=== PATIENT | male | born 1985 | race Caucasian/White ===

== ENCOUNTER 2017-04-09 14:07 | Emergency (ER) | payer OTHER ==
[2017-04-09 14:49] VITALS: BP 127/85
--- NOTE | 2017-04-09 15:20 | RAD ---
INDICATION: Trauma COMPARISON: None TECHNIQUE: AP, lateral, and oblique views were obtained. FINDINGS: There is a mildly angulated fractures of the fifth metacarpal head. There are no other fractures. The articular relationships are maintained. There is soft tissue swelling about the fracture site. IMPRESSION: FIFTH METACARPAL FRACTURE.
--- NOTE | 2017-04-09 18:39 | UC ---
Crow Minaya Alfonso, scribed for Archie Daly MD on 04/09/17 at 1559 . Hand/Wrist HPI - HPI Summary HPI Summary: This patient is a 31 year old M presenting to [facility] with a chief complaint of right hand injury since yesterday at noon. 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 Pt rates the pain 4/10 in severity. Symptoms aggravated and alleviated by nothing. Not alleviated by ibuprofen. Pt reports ecchymosis and swelling of the right hand. Pt denies lacerations. Pt medications reviewed this visit. - History Of Current Complaint Chief Complaint: UCUpperExtremity Stated Complaint: HAND INJURY Time Seen by Provider: 04/09/17 15:29 Hx Obtained From: Patient Onset/Duration: Sudden Onset, Lasting Days - 1, Still Present Pain Intensity: 4 Pain Scale Used: 0-10 Numeric Aggravating Factor(s): Other Alleviating: Other Associated Signs And Symptoms: Positive: Swelling, Bruising, Other - Negative lacerations Related History: Other: - punching a tv news director block - Allergies/Home Medications Allergies/Adverse Reactions: Allergies Allergy/AdvReac Type Severity Reaction Status Date / Time Penicillins Allergy See Comment Verified 04/09/17 14:45 Home Medications: Home Medications Adozisc-Znirvozzzseah-Idhkdjdj [Excedrin Migraine 250-250-65 mg] 04/09/17 [ History] Escitalopram Oxalate [Lexapro 20 mg] 04/09/17 [History] Esomeprazole Magnesium [Nexium 24Hr] 04/09/17 [History] PMH/Surg Hx/FS Hx/Imm Hx - Surgical History Surgical History: Yes Surgery Procedure, Year, and Place: fistula surgery, tonsilectomy - Family History Known Family History: Positive: Diabetes - Mother - Social History Alcohol Use: Weekly Substance Use Type: None Smoking Status (MU): Heavy Every Day Tobacco Smoker Type: Cigarettes Amount Used/How Often: 8 cig/day Review of Systems Constitutional: Other - Negative fever Skin: Other - Positive ecchymosis and swelling of the right hand; negative lacerations Musculoskeletal: Other: - Positive right hand pain All Other Systems Reviewed And Are Negative: Yes Physical Exam Triage Information Reviewed: Yes Appearance: Well-Appearing, No Pain Distress Vital Signs: Initial Vital Signs Temp 97.5 F 04/09/17 14:46 Pulse 65 04/09/17 14:46 Resp 16 04/09/17 14:46 BP 127/85 04/09/17 14:46 Pulse Ox 96 04/09/17 14:46 Vital Signs Reviewed: Yes Eyes: Positive: Other: - EOMI, BRIE ENT Exam: Normal Neck: Positive: Supple, Nontender Respiratory Exam: Other - CTA, breath sounds present Cardiovascular: Positive: RRR, Other: - Good cap refills. Good pulses. Abdomen Description: Positive: Nontender, Soft Bowel Sounds: Positive: Present Musculoskeletal: Positive: ROM Intact - At right elbow, Other: - Right hand swollen. Tender over the fifth metacarpal. Wrist non tender. Can move all fingers. Neurological: Positive: Other: - normal, sensory/motor intact, A&O x3 Psychological: Positive: Age Appropriate Behavior Skin: Positive: Other - warm, color reflects adequate perfusion, dry Procedures - Splinting Location: Right hand Splint: ulnar gutter splint Diagnostics - Radiology Hand X-Ray Radiology Interpretation Completed By: Radiologist - FIFTH METACARPAL FRACTURE. Hand/Wrist Course/Dx - Course Course Of Treatment: MINIMAL DISPLACEMENT. PLACED IN GUTTER SPLINT. F/U ORTHOPEDICS. - Differential Dx/Diagnosis Provider Diagnoses: RT 5TH METACARPAL FRACTURE. Discharge - Discharge Plan Condition: Stable Disposition: HOME Prescriptions: HYDROcodone/ACETAMIN 5-325 MG* [[place] 5-325 TAB*] 1 tab PO Q4H PRN #20 tab MDD 6 PRN Reason: Pain Patient Education Materials: Boxer Fracture (ED) Forms: *Work Release Referrals: [facility] [Outside] No Primary Care Phys,NOPCP [Primary Care Provider] - Additional Instructions: FOLLOW UP WITH ORTHOPEDICS. RETURN TO THE EMERGENCY DEPARTMENT FOR ANY WORSENING OF YOUR CONDITION OR QUESTIONS OR CONCERNS. The documentation as recorded by the Crow hurt Alfonso accurately reflects the service I personally performed and the decisions made by me, Archie Daly MD.
== END 2017-04-09 16:11 | disposition home or self-care (01) ==
LOC: UCEAST 14:07
DX: S62.306A Unspecified fracture of fifth metacarpal bone, right hand, initial encounter for closed fracture (principal); W22.09XA Striking against other stationary object, initial encounter; F17.210 Nicotine dependence, cigarettes, uncomplicated
CPT/HCPCS: 99212; G0463